=== PATIENT | female | born 1980 | race Caucasian/White ===

== ENCOUNTER 2018-12-01 10:44 | Emergency (ER) | payer OTHER ==
[~2018-12-01] VITALS: Ht 149.9 cm; Wt 77.1 kg
--- OUTSIDE RECORDS SUMMARY | 2018-12-01 10:47 | XMS REPORT ---
Author Author [facility] Address Unknown Phone Unavailable Care Team Providers Care Voip Network Engineer Name Role Phone Unavailable Unavailable Payers Payer Name Policy Type Policy Number Effective Date Expiration Date Problems This patient has no known problems. Allergies, Adverse Reactions, Alerts Allergy Name Allergy Type Status Severity Reaction(s) Onset Date Inactive Date Treating Clinician Comments No Known Allergies DA Active U 2014-09-26 00:00:00 Medications This patient has no known medications.
[2018-12-01] MEDS ORDERED: KETOROLAC TROMETHAMINE 60 MG/2 ML VIAL IM ONE (11:45)
[2018-12-01] MEDS ORDERED: DIAZEPAM 5 MG TAB PO NR (11:45)
[2018-12-01 13:28] LABS: PREGNANCY TEST, URINE NEGATIVE (NEGATIVE)
[2018-12-01 13:31] LABS: BILIRUBIN,URINE NEGATIVE (NEGATIVE); CLARITY,URINE SL CLOUDY (CLEAR); COLOR,URINE YELLOW (YELLOW); KETONES,URINE NEGATIVE (NEGATIVE); LEUKOCYTE ESTERASE ,URINE NEGATIVE (NEGATIVE); NITRITE,URINE NEGATIVE (NEGATIVE); PROTEIN,URINE DIPSTICK NEGATIVE (NEGATIVE); URINE UROBILINOGEN 1 mg/dL (0.2 - 1)
[2018-12-01 13:48] LABS: EPITHELIAL CELLS,URINE RARE /LPF
--- NOTE | 2018-12-01 13:48 | NUR ---
1348- Toradol 60mg IM to left hip. valium 5mg PO Patient uzma all well
--- NOTE | 2018-12-01 14:35 | Diagnostic Imaging Report ---
EXAMINATION: SP LUMBAR, COMPLETE MIN 4VW INDICATION: Back pain COMPARISON: None FINDINGS: AP, lateral, and oblique images of the lumbar spine were obtained. Alignment is anatomic. No acute fracture or dislocation. Vertebral body heights are well-maintained. No substantial degenerative changes. Nonobstructive bowel gas pattern. No free air. IMPRESSION: No acute osseous injury. Signed by: Mo Doherty MD on 12/01/2018 2:32 PM
== END 2018-12-01 15:11 | disposition home or self-care (01) ==
LOC: ER 10:44
DX: S33.5XXA Sprain of ligaments of lumbar spine, initial encounter (principal); S39.012A Strain of muscle, fascia and tendon of lower back, initial encounter; X50.0XXA Overexertion from strenuous movement or load, initial encounter; Y99.0 Civilian activity done for income or pay
CPT/HCPCS: 72110; 81001; 81025; 99283; J1885

== ENCOUNTER 2019-01-20 12:12 | Emergency (ER) | payer OTHER ==
[~2019-01-20] VITALS: Ht 149.9 cm; Wt 77.1 kg
[2019-01-20] MEDS ORDERED: IBUPROFEN 600 MG TAB PO STA (12:35)
--- NOTE | 2019-01-20 13:24 | Diagnostic Imaging Report ---
EXAMINATION: FOOT LEFT COMPLETE INDICATION: Trauma COMPARISON: None FINDINGS: No acute fracture or dislocation. Alignment appears anatomic. Soft tissues appear unremarkable. IMPRESSION: No acute osseous injury. Signed by: Mo Doherty MD on 01/20/2019 1:21 PM
[2019-01-20 15:08] VITALS: BP 126/83
== END 2019-01-20 15:15 | disposition home or self-care (01) ==
LOC: ER 12:12
DX: S90.112A Contusion of left great toe without damage to nail, initial encounter (principal); W20.8XXA Other cause of strike by thrown, projected or falling object, initial encounter; Y99.0 Civilian activity done for income or pay; H91.3 Deaf nonspeaking, not elsewhere classified; J45.909 Unspecified asthma, uncomplicated
CPT/HCPCS: 99283

== ENCOUNTER 2022-03-02 11:15 | Emergency (ER) | payer OTHER ==
[~2022-03-02] VITALS: Ht 149.9 cm; Wt 77.1 kg
[2022-03-02] MEDS ORDERED: KETOROLAC TROMETHAMINE 60 MG/2 ML VIAL IM NR (11:30)
[2022-03-02] MEDS ORDERED: METHOCARBAMOL500 MG PO (13:51)
== END 2022-03-02 14:08 | disposition home or self-care (01) ==
LOC: ER 11:23
DX: S93.492A Sprain of other ligament of left ankle, initial encounter (principal); S80.02XA Contusion of left knee, initial encounter; S70.02XA Contusion of left hip, initial encounter; M54.50 Low back pain, unspecified; W10.8XXA Fall (on) (from) other stairs and steps, initial encounter; Y93.01 Activity, walking, marching and hiking; Y92.89 Other specified places as the place of occurrence of the external cause; H91.3 Deaf nonspeaking, not elsewhere classified; J45.909 Unspecified asthma, uncomplicated
CPT/HCPCS: 72110; 73502; 73562; 73590; 73610; 99283; J1885